=== PATIENT | male | born 1965 | race Caucasian/White ===

== ENCOUNTER 2019-03-23 14:34 | Inpatient (IN) ==
[2019-03-23] MEDS: *HR* OxyCODONE Immed Rel 5 MG TABLET PO PRN ×2 (16:12→23:09)
[2019-03-23] MEDS ORDERED: Morphine Sulfate ER (12 HR) 30 MG TABLET.ER PO SCH (18:00)
[2019-03-23] MEDS: Morphine Sulfate ER (12 HR) 30 MG TABLET.ER PO SCH (20:17)
[2019-03-23] MEDS: *HR* LORazepam 1 MG TABLET PO PRN (23:09)
[2019-03-24] MEDS ORDERED: Venlafaxine XR (24 HR) 150 MG CAP.ER.24H PO SCH (09:00)
[2019-03-24] MEDS ORDERED: Loratadine 10 MG TABLET PO SCH (09:00)
[2019-03-24] MEDS: Multivit/Ca/Min/Fe/FA 1 TAB TABLET PO SCH (10:11)
[2019-03-24] MEDS: *HR* LORazepam 1 MG TABLET PO PRN (11:36)
[2019-03-24] MEDS: Morphine Sulfate ER (12 HR) 30 MG TABLET.ER PO SCH ×2 (11:36→22:17)
[2019-03-24] MEDS: *HR* OxyCODONE Immed Rel 5 MG TABLET PO PRN (15:12)
--- NOTE | 2019-03-24 16:39 | Internal Med History&Physical ---
Date of Encounter: 03/24/19 Time of Encounter: 16:05 Assessment and Plan (1) Small cell lung cancer Current visit: No Status: Acute No further intervention planned. Continue hospice intervention/[facility]. Family states they wish him to be discharged home prior to . (2) Chest pain Current visit: No Status: Acute Possible pleuritic chest pain although pleural friction rub not auscultated. Narcotic analgesics will be continued. Trial of prednisone will be given to lessen possible pleuritic component of pain. Qualifiers: Chest pain type: chest pain on breathing Qualified Code(s): R07.1 - Chest pain on breathing; R07.81 - Pleurodynia (3) Elevated LFTs Current visit: No Status: Acute History of significant alcohol use. No further workup planned. Internal Medicine - H&P: HPI Chief complaint: Metastatic lung cancer with decline Admitted From: Direct Admit History of present illness: Mr. Jones is a 54 year old male who was admitted to [facility] hospice respite bed March 23. He had been admitted to hospice approximate one month ago following his most recent discharge from [facility]. He was diagnosed with small cell lung cancer April 2018 and received chemotherapy and XRT at [facility]. Most recent hospitalization [facility] was for right-sided chest pain and alcohol withdrawal symptoms/DTs. He has manifested confusion and dysphagia since respite admission. Hospice staff recommended he be changed from respite status to GIP status. He cannot give additional history. Past Med Surg Social Fam HX - Past Medical History Medical history: cancer, diabetes, hyperlipidemia, hypertension, migraine, other Additional medical history: lung ca Psychiatric history: anxiety, depression, PTSD - Past Surgical History Surgical History: other Additional surgical history: lung biopsy - Social History Smoking Status: Current every day smoker Smokeless Tobacco Status: No Alcohol use: occasionally Drug use: none - Family History Sister Living Status: Still Living Hx Family Cancer: Yes (pancreatic ca) Mother Living Status: Father Living Status: Internal Medicine - H&P: Meds Cetirizine HCl [Zyrtec] 10 mg PO DAILY 11/03/18 [History] Prochlorperazine Maleate [Compazine] 10 mg PO Q6H PRN 11/03/18 [History] Venlafaxine XR (24 HR) [Effexor Xr] 150 mg PO DAILY 01/11/19 [History] Multivitamin with Iron [Multivitamins with Iron] 1 tab PO DAILY 02/13/19 [History] LORazepam [Ativan] 1 mg PO TID PRN 5 Days #15 tablet 02/15/19 [Rx] Omeprazole [PriLOSEC] 40 mg PO DAILY #30 cap 02/15/19 [Rx] Morphine Sulfate ER (12 HR) [MS Contin] 1 tab PO Q12HR 03/23/19 [History] Oxycodone HCl 10 mg PO Q3H PRN 03/23/19 [History] Allergy/AdvReac Type Severity Reaction Status Date / Time sumatriptan [From Imitrex] AdvReac Hives Verified 01/11/19 09:37 All Systems PM: A 10-system review of systems was performed and is negative for pertinent findings except as documented above in the HPI. Review of systems: Unobtainable from the patient. Review of available records show a diagnosis of stage IV lung cancer, DM 2, hypertension, and history of hyperlipidemia. - Constitutional Vitals: Temp Pulse Resp BP Pulse Ox 97.6 F 112 16 113/77 93 03/23/19 18:57 03/24/19 06:44 03/24/19 06:44 03/24/19 06:44 03/24/19 06:44 Exam: Gen.: He is a well-developed well-nourished male lying in bed who appears confused and slightly agitated. HEENT: Head is atraumatic and normocephalic. Eyes: EOMI. There is no scleral icterus. Mouth: He does not open his mouth for examination. Neck: There is no thyromegaly or adenopathy noted. Heart: Regular with rate approximately 116/m. Lungs: No wheezes or crackles are heard. Abdomen: Soft and nontender. No masses or guarding are noted. Extremities: His feet are cool to touch. There is 1+ edema of the dorsum of the feet and lower legs bilaterally. Dorsalis pedis and posterior tibial pulses are not palpable. Neurologic: Mental status: He is agitated and appears delirious. He does not answer questions consistently. He states his age is 52. He states he is in [place]. Cranial nerves: Facial movements are minimal but symmetric. Forehead wrinkles bilaterally. EOMI. Motor: He has cogwheeling and rigidity on passive range of motion of his arms and wrists. He moves his arms and legs well randomly. No further neurologic testing is attempted. Skin: Warm and dry
[2019-03-24] MEDS: *HR* LORazepam Oral Conc 2 MG/ML SL SCH ×2 (22:19→23:42)
[2019-03-25] MEDS: *HR* LORazepam Oral Conc 2 MG/ML SL SCH ×5 (08:14→23:38)
[2019-03-25] MEDS: Morphine Sulfate ER (12 HR) 30 MG TABLET.ER PO SCH ×2 (08:14→20:08)
[2019-03-25] MEDS: Multivit/Ca/Min/Fe/FA 1 TAB TABLET PO SCH (08:15)
[2019-03-25] MEDS: predniSONE 10 MG TABLET PO SCH ×2 (12:49→17:07)
[2019-03-25] MEDS: Nicotine 21 MG PATCH.TD24 TD SCH (12:50)
--- NOTE | 2019-03-25 16:05 | Internal Med Progress Note ---
Date of Encounter: 03/25/19 Time of Encounter: 15:55 - Assessment and plan (1) Small cell lung cancer Current Visit: No Status: Acute Assessment and plan: March 25. 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 (2) Chest pain Current Visit: No Status: Acute Assessment and plan: March 25. Continue prednisone. Qualifiers: Chest pain type: chest pain on breathing Qualified Code(s): R07.1 - Chest pain on breathing; R07.81 - Pleurodynia (3) Elevated LFTs Current Visit: No Status: Acute Assessment and plan: March 25. No further workup planned. (4) Agitation Current Visit: Yes Status: Acute Assessment and plan: March 25. Continue scheduled and prn Ativan. (5) Urinary retention Current Visit: Yes Status: Acute Assessment and plan: March 25. Bladder scan showed 250+ mL urine present. He refused straight c atheterization. He will be started on Flomax and Proscar. - Subjective Interval history: March 25. No new problems have arisen. He complains of discomfort in his chest and abdomen. - Constitutional Vitals: Temp Pulse Resp BP Pulse Ox 98.3 F 120 12 97/63 93 03/25/19 08:08 03/25/19 08:08 03/25/19 08:08 03/25/19 08:08 03/25/19 08:08 Exam: He is sitting on the side of bed and appears slightly less agitated than yesterday. He is not dyspneic. Extremities show trace pitting edema. I reviewed his medications. Consult Discharge Plan - Plan Referrals: NONE,PCP [Primary Care Provider] - 1 week
[2019-03-25] MEDS: Finasteride 5 MG TABLET PO SCH (17:07)
[2019-03-25] MEDS: Morphine Sulfate Oral CONC 10 MG/0.5 ML ORAL.SYG SL PRN ×2 (17:07→22:18)
[2019-03-25] MEDS: *HR* LORazepam Oral Conc 2 MG/ML SL PRN (20:08)
[2019-03-26] MEDS: Morphine Sulfate Oral CONC 10 MG/0.5 ML ORAL.SYG SL PRN ×4 (02:02→19:05)
[2019-03-26] MEDS: *HR* LORazepam Oral Conc 2 MG/ML SL SCH ×3 (07:06→19:05)
[2019-03-26] MEDS: predniSONE 10 MG TABLET PO SCH ×2 (09:25→17:57)
[2019-03-26] MEDS: Morphine Sulfate ER (12 HR) 30 MG TABLET.ER PO SCH ×2 (09:25→20:43)
[2019-03-26] MEDS: Multivit/Ca/Min/Fe/FA 1 TAB TABLET PO SCH (09:25)
[2019-03-26] MEDS: Nicotine 21 MG PATCH.TD24 TD SCH (09:25)
[2019-03-26] MEDS: Finasteride 5 MG TABLET PO SCH (09:25)
--- NOTE | 2019-03-26 12:44 | Internal Med Progress Note ---
Date of Encounter: 03/26/19 Time of Encounter: 12:35 - Assessment and plan (1) Small cell lung cancer Current Visit: No Status: Acute Assessment and plan: March 25. 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 (2) Chest pain Current Visit: No Status: Acute Assessment and plan: March 25. Continue prednisone. Qualifiers: Chest pain type: chest pain on breathing Qualified Code(s): R07.1 - Chest pain on breathing; R07.81 - Pleurodynia (3) Elevated LFTs Current Visit: No Status: Acute Assessment and plan: March 25. No further workup planned. (4) Agitation Current Visit: Yes Status: Acute Assessment and plan: March 25. Continue scheduled and prn Ativan. March 26. Agitation seems to have lessened. Continue present Ativan Rx. (5) Urinary retention Current Visit: Yes Status: Acute Assessment and plan: March 25. Bladder scan showed 250+ mL urine present. He refused straight catheterization. He will be started on Flomax and Proscar. March 26. Continue Reece catheter. - Subjective Interval history: March 25. No new problems have arisen. He complains of discomfort in his chest and abdomen. March 26. He had worsening urinary retention with discomfort and requested Reece catheter be inserted last evening. No new problems have arisen otherwise. - Constitutional Vitals: Temp Pulse Resp BP Pulse Ox 96.4 F L 153 18 106/76 84 03/26/19 09:00 03/26/19 09:00 03/26/19 09:00 03/26/19 09:00 03/26/19 09:00 Exam: He is sitting in a wheelchair at bedside resting comfortably. His affect is flat. He does not answer questions significantly. He has 1+ edema of the lower legs bilaterally. Heart is regular with rate 132/m. I reviewed his medications and vitals. Consult Discharge Plan - Plan Referrals: NONE,PCP [Primary Care Provider] - 1 week
[2019-03-26] MEDS: *HR* LORazepam Oral Conc 2 MG/ML SL PRN (20:43)
[2019-03-27] MEDS: *HR* LORazepam Oral Conc 2 MG/ML SL SCH ×3 (00:23→12:40)
[2019-03-27] MEDS: Morphine Sulfate Oral CONC 10 MG/0.5 ML ORAL.SYG SL PRN ×5 (00:24→12:42)
[2019-03-27] MEDS: *HR* LORazepam Oral Conc 2 MG/ML SL PRN (01:19)
[2019-03-27 07:06] VITALS: BP 96/62
[2019-03-27] MEDS: Morphine Sulfate ER (12 HR) 30 MG TABLET.ER PO SCH (09:00)
[2019-03-27] MEDS: predniSONE 10 MG TABLET PO SCH (09:00)
[2019-03-27] MEDS: Finasteride 5 MG TABLET PO SCH (09:00)
[2019-03-27] MEDS: Multivit/Ca/Min/Fe/FA 1 TAB TABLET PO SCH (09:00)
[2019-03-27] MEDS: Nicotine 21 MG PATCH.TD24 TD SCH (09:02)
--- NOTE | 2019-03-27 11:11 | Discharge Summary ---
Date of Encounter: 03/27/19 Time of Encounter: 10:55 - Discharge Diagnosis (1) Small cell lung cancer Priority: Primary Status: Acute (2) Chest pain Priority: Secondary Status: Acute Qualifiers: Chest pain type: chest pain on breathing Qualified Code(s): R07.1 - Chest pain on breathing; R07.81 - Pleurodynia (3) Elevated LFTs Priority: Secondary Status: Acute (4) Agitation Priority: Secondary Status: Acute (5) Urinary retention Priority: Secondary Status: Acute Hospital course: Mr. Jones is a 54 year old male who was admitted to [facility] hospice respite bed March 23. He had been admitted to hospice approximate one month ago following his most recent discharge from [facility]. He was diagnosed with small cell lung cancer April 2018 and received chemotherapy and XRT at [facility]. Most recent hospitalization [facility] was for right-sided chest pain and alcohol withdrawal symptoms/DTs. He has manifested confusion and dysphagia since respite admission. Hospice staff recommended he be changed from respite status to GIP status. I saw him March 24 and performed the hospice history and physical. He was started on scheduled lorazepam concentrate with additional doses available on a prn basis. He was also started on Roxanol. His agitation lessened over hospitalization. He was started on prednisone for possible pleurisy from lung cancer involving chest wall. His chest pain seemed to lessen. Prednisone will be continued at discharge. He had urinary retention requiring insertion of Reece catheter. He was started on Flomax and Proscar. Reece catheter will remain in place at discharge. On March 27 it was agreed by hospice staff and fiance he was stable for discharged to the home environment. - Time Spent with Patient Total time spent providing and/or coordinating discharge services: - Discharge Medications Prescriptions: New LORazepam Oral Conc [Ativan Oral Conc] 1 mg SL Q2H PRN mls PRN Reason: Agitation LORazepam Oral Conc [Ativan Oral Conc] 1 mg SL Q6HR 7 Days #120 mls Tamsulosin [Flomax] 0.4 mg PO DAILY #30 capsule Nicotine Patch [Nicoderm] 21 mg TD DAILY patch.td24 predniSONE [PredniSONE] 10 mg PO BIDWM #14 tablet Finasteride [Proscar] 5 mg PO DAILY #30 tablet Morphine Sulfate Oral CONC [Roxanol Oral Conc] 10 mg SL Q1H PRN 7 Days #120 ml PRN Reason: Pain Continued Prochlorperazine Maleate [Compazine] 10 mg PO Q6H PRN PRN Reason: Nausea Multivitamin with Iron [Multivitamins with Iron] 1 tab PO DAILY Morphine Sulfate ER (12 HR) [MS Contin] 1 tab PO Q12HR Discontinued Cetirizine HCl [Zyrtec] 10 mg PO DAILY Venlafaxine XR (24 HR) [Effexor Xr] 150 mg PO DAILY LORazepam [Ativan] 1 mg PO TID PRN 5 Days #15 tablet PRN Reason: Anxiety Omeprazole [PriLOSEC] 40 mg PO DAILY #30 cap Oxycodone HCl 10 mg PO Q3H PRN PRN Reason: Pain Home Medications: Prochlorperazine Maleate [Compazine] 10 mg PO Q6H PRN 11/03/18 [History] Multivitamin with Iron [Multivitamins with Iron] 1 tab PO DAILY 02/13/19 [History] Morphine Sulfate ER (12 HR) [MS Contin] 1 tab PO Q12HR 03/23/19 [History] Finasteride [Proscar] 5 mg PO DAILY #30 tablet 03/27/19 [Rx] LORazepam Oral Conc [Ativan Oral Conc] 1 mg SL Q2H PRN mls 03/27/19 [Rx] LORazepam Oral Conc [Ativan Oral Conc] 1 mg SL Q6HR 7 Days #120 mls 03/27/19 [Rx] Morphine Sulfate Oral CONC [Roxanol Oral Conc] 10 mg SL Q1H PRN 7 Days #120 ml 03/27/19 [Rx] Nicotine Patch [Nicoderm] 21 mg TD DAILY patch.td24 03/27/19 [Rx] Tamsulosin [Flomax] 0.4 mg PO DAILY #30 capsule 03/27/19 [Rx] predniSONE [PredniSONE] 10 mg PO BIDWM #14 tablet 03/27/19 [Rx] Allergies/Adverse Reactions: Allergy/AdvReac Type Severity Reaction Status Date / Time sumatriptan [From Imitrex] AdvReac Hives Verified 01/11/19 09:37 Date of admission: 03/23/19 15:15 Primary care physician: PCP NONE Consults: 03/24/19 09:49 Consult to Speech Therapy [CONS] Routine Comment: Evaluate, develop and implement POC Reason for Consult: swallow evaluation Call Completed: Yes - Constitutional Vitals: Temp Pulse Resp BP Pulse Ox 98.2 F 113 14 96/62 90 03/27/19 07:03 03/27/19 07:03 03/27/19 07:03 03/27/19 07:03 03/26/19 21:00 - Patient Status Disposition: Hospice - Home - Discharge Instructions Follow Up With: NONE,PCP [Primary Care Provider] - 1 week - Diet and Activity Activity: resume usual activities as tolerated Diet: regular diet
== END 2019-03-27 13:48 | disposition hospice, home (50) | DRG 182 ==
LOC: INPPIK 15:15
PROVIDERS: ADMIT Internal Medicine; ATTEND Internal Medicine